=== PATIENT | male | born 1995 | race Caucasian/White ===

== ENCOUNTER 2018-10-06 20:56 | Emergency (ER) | payer OTHER ==
[2018-10-06 21:03] VITALS: BP 132/74
--- NOTE | 2018-10-06 21:25 | UC ---
Hand/Wrist HPI - HPI Summary HPI Summary: jammed left middle finger 2 weeks ago has continued swelling PIP joint - History Of Current Complaint Chief Complaint: UCUpperExtremity Stated Complaint: FINGER INJURY Time Seen by Provider: 10/06/18 21:05 Hx Obtained From: Patient ?: No Mechanism Of Injury: jammed left middle finger 2 weeks ago Pain Intensity: 8 Pain Scale Used: 0-10 Numeric Character Of Pain: Aching, Unable To Describe - hurts when t gets bumped in to Alleviating Factor(s): Nothing Associated Signs And Symptoms: Positive: Swelling Related History: Dominant Hand Right - Allergies/Home Medications Allergies/Adverse Reactions: Allergies Allergy/AdvReac Type Severity Reaction Status Date / Time No Known Allergies Allergy Verified 10/06/18 21:03 Home Medications: Home Medications Dapsone TAB* 10/06/18 [History] Naltrexone TAB* 10/06/18 [History] PMH/Surg Hx/FS Hx/Imm Hx Previously Healthy: Yes - Surgical History Surgical History: None - Family History Known Family History: Positive: None - Social History Occupation: Student Lives: Dormitory/Roommates Alcohol Use: Occasionally Substance Use Type: None Smoking Status (MU): Never Smoked Tobacco Review of Systems All Other Systems Reviewed And Are Negative: Yes Constitutional: Positive: Negative Skin: Positive: Negative Eyes: Positive: Negative ENT: Positive: Negative Respiratory: Positive: Negative Cardiovascular: Positive: Negative Gastrointestinal: Positive: Negative Genitourinary: Positive: Negative Motor: Positive: Negative Neurovascular: Positive: Negative Musculoskeletal: Positive: Arthralgia - left middle pip Neurological: Positive: Negative Psychological: Positive: Negative Is Patient Immunocompromised?: No Physical Exam Triage Information Reviewed: Yes Appearance: Well-Appearing, No Pain Distress, Well-Nourished Vital Signs: Initial Vital Signs Temp 97.4 F 10/06/18 21:00 Pulse 70 10/06/18 21:00 Resp 16 10/06/18 21:00 BP 132/74 10/06/18 21:00 Pulse Ox 97 10/06/18 21:00 Vital Signs Reviewed: Yes Eye Exam: Normal Eyes: Positive: Conjunctiva Clear ENT Exam: Normal ENT: Positive: Normal ENT inspection, Hearing grossly normal. Negative: Trismus , Muffled voice, Hoarse voice Dental Exam: Normal Neck exam: Normal Neck: Positive: Supple, Nontender, No Lymphadenopathy Respiratory Exam: Normal Respiratory: Positive: Chest non-tender, No respiratory distress, No accessory muscle use Cardiovascular Exam: Normal Cardiovascular: Positive: RRR, Pulses Normal, Brisk Capillary Refill Musculoskeletal Exam: Other Musculoskeletal: Positive: Strength Intact, ROM Limited @ - slightley decrease ROM, Edema @ - left middle pip joint Neurological Exam: Normal Neurological: Positive: Alert, Muscle Tone Normal Psychological Exam: Normal Skin Exam: Normal Diagnostics - Radiology No standard instances Radiology Interpretation Completed By: ED Physician Summary of Radiographic Findings: ?remote avulsion fx of proximal middle phalange Hand/Wrist Course/Dx - Course Course Of Treatment: patient refused splint, advised to call in am for offical radiology report, follow with orthopedic MD - Differential Dx/Diagnosis Provider Diagnoses: avulsion fx left 3rd proximal middle phalnge Discharge - Sign-Out/Discharge Documenting (check all that apply): Patient Departure All imaging exams completed and their final reports reviewed: No - Discharge Plan Condition: Stable Disposition: HOME Patient Education Materials: Nettie Hawkins (ED) Referrals: Preston Yanez MD [Medical Doctor] - 2 Days - Billing Disposition and Condition Condition: STABLE Disposition: Home
--- NOTE | 2018-10-07 08:21 | UC ---
- EKG/XRAY/CT Xray Comments: wet read correct Discharge - Sign-Out/Discharge Documenting (check all that apply): Post-Discharge Follow Up All imaging exams completed and their final reports reviewed: Yes - Discharge Plan Condition: Stable Disposition: HOME Patient Education Materials: Nettie Hawkins (ED) Referrals: Preston Yanez MD [Medical Doctor] - 2 Days - Billing Disposition and Condition Condition: STABLE Disposition: Home
== END 2018-10-06 21:30 | disposition home or self-care (01) ==
LOC: UCEAST 20:56
DX: S62.613A Displaced fracture of proximal phalanx of left middle finger, initial encounter for closed fracture (principal); W23.0XXA Caught, crushed, jammed, or pinched between moving objects, initial encounter; Y92.9 Unspecified place or not applicable
CPT/HCPCS: 73140; 99211; G0463

== ENCOUNTER 2019-09-03 11:39 | Emergency (ER) | payer OTHER ==
--- NOTE | 2019-09-03 12:14 | ED ---
Throat Pain/Nasal Congestion - HPI Summary HPI Summary: Pt is a 23 y/o M presenting to the ED for a chief complaint of throat pain that began on 08/29/19. Pt also reports a dry non-productive cough, rhinorrhea, nasal congestion with mucous and white streaks on the back of the throat. Pt denies fever, fatigue, abdominal pain, lesions on the bilateral hands, or recent strep throat. Pt admits a PMHx of a skin problem. Pt denies tobacco use or a FMHx of HTN or DM. Pt admits occasional alcohol use. Pt believes he has had mononucleosis in the past. - History of Current Complaint Chief Complaint: EDThroatPain Time Seen by Provider: 09/03/19 11:48 Hx Obtained From: Patient Onset/Duration: Lasting Days, Still Present Severity: Moderate Associated Signs And Symptoms: Positive: Nasal Discharge Cough: Nonproductive - Allergies/Home Medications Allergies/Adverse Reactions: Allergies Allergy/AdvReac Type Severity Reaction Status Date / Time No Known Allergies Allergy Verified 09/03/19 11:43 Home Medications: Home Medications Tofacitinib Citrate [Xeljanz] 5 mg PO BID 09/03/19 [History Confirmed 09/03/19] PMH/Surg Hx/FS Hx/Imm Hx Previously Healthy: Yes Endocrine/Hematology History: Denies: Hx Diabetes Cardiovascular History: Denies: Hx Hypertension Sensory History: Denies: Hx Legally Blind, Hx Deafness Opthamlomology History: Denies: Hx Legally Blind EENT History: Denies: Hx Deafness - Surgical History Surgical History: None Surgery Procedure, Year, and Place: None Infectious Disease History: No Infectious Disease History: Denies: Traveled Outside the [place] in Last 30 Days - Family History Known Family History: Negative: Hypertension, Diabetes - Social History Occupation: Student Alcohol Use: Occasionally Hx Substance Use: No Substance Use Type: Reports: None Hx Tobacco Use: No Smoking Status (MU): Never Smoked Tobacco Review of Systems Negative: Fever, Fatigue Positive: Nasal Discharge - Rhinorrhea and nasal congestion with mucous, Other - Positive throat pain with white streaks in the back of the throat. Positive: Cough - Dry, non-productive Negative: Abdominal Pain Positive: Other - Negative lesions on the bilateral hands All Other Systems Reviewed And Are Negative: Yes Physical Exam - Summary Physical Exam Summary: Constitutional: Well-developed, Well-nourished, Alert. (-) Distressed Skin: Warm, Dry HENT: Normocephalic; Atraumatic. Erythema of posterior oropharynx, vesicular lesion to the left soft palate. Eyes: Conjunctiva normal Neck: Musculoskeletal ROM normal neck. (-) JVD, (-) Stridor, (-) Nuchal rigidity Cardio: Rhythm regular, rate normal, Heart sounds normal; Intact distal pulses; Radial pulses are 2+ and symmetric. (-) Murmur Pulmonary/Chest wall: Effort normal. (-) Respiratory distress, (-) Wheezes, (-) Rales Abd:non distended Musculoskeletal: (-) Edema Lymph: (+) Cervical adenopathy Neuro: Alert, Oriented x3 Psych: Mood and affect Normal Triage Information Reviewed: Yes Vital Signs On Initial Exam: Initial Vitals Temp Pulse Resp BP Pulse Ox 98.4 F 80 16 133/76 99 09/03/19 11:41 09/03/19 11:41 09/03/19 11:41 09/03/19 11:41 09/03/19 11:41 Vital Signs Reviewed: Yes Procedures - Sedation Patient Received Moderate/Deep Sedation with Procedure: No Diagnostics - Vital Signs Vital Signs Temp Pulse Resp BP Pulse Ox 09/03/19 11:41 98.4 F 80 16 133/76 99 - Laboratory Lab Statement: Any lab studies that have been ordered have been reviewed, and results considered in the medical decision making process. Re-Evaluation - Re-Evaluation First Eval Re-Evaluation Time: 12:35 Comment: strep neg, dc EENT Course/Dx - Course Course Of Treatment: 23 y/o male p/w sore throat, URI like symptoms. - PE w posterior oropharynx erythema, vesicular lesion to L soft palate. Suspect herpangina/viral cause. No lesions to hands or feet. D/w patient unlikely strep given cough but sent strep. Declines mono test. Throat culture sent. - Diagnoses Provider Diagnoses: URI (upper respiratory infection), Throat pain Discharge ED - Sign-Out/Discharge Documenting (check all that apply): Patient Departure - Discharge - Discharge Plan Condition: Stable Disposition: HOME Patient Education Materials: Pharyngitis (ED) Referrals: [facility] - Jake PEREZ [Primary Care Provider] - Additional Instructions: You were seen in the emergency department for sore throat. Rapid strep was negative. Your throat culture is pending. If any studies were not completed at the time of discharge you will be called with the relevant results. Please follow up with your primary care doctor in next 2-3 days and return to emergency department for worsening in, trouble breathing, trouble swallowing, or concerning symptoms. It was a pleasure taking care of you today. - Billing Disposition and Condition Condition: STABLE Disposition: Home - Attestation Statements Document Initiated by Kurt: Yes Documenting Scribe: Meredith Rodriguez Provider For Whom Kurt is Documenting (Include Credential): Kendrick Robles MD Scribe Attestation: IMeredith, scribed for Kendrick Robles MD on 09/03/19 at 1251. Scribe Documentation Reviewed: Yes Provider Attestation: The documentation as recorded by the Meredith celis accurately reflects the service I personally performed and the decisions made by , Kendrick Robles MD Status of Scribe Document: Viewed
[2019-09-03 12:31] LABS: Rapid Strep Molecular Negative (Negative)
[2019-09-03 12:57] VITALS: BP 136/81
== END 2019-09-03 12:50 | disposition home or self-care (01) ==
LOC: ED 11:39
DX: J06.9 Acute upper respiratory infection, unspecified (principal); R07.0 Pain in throat; Z79.899 Other long term (current) drug therapy
CPT/HCPCS: 87070; 87651; 99282